=== PATIENT | male | born 1990 | race Caucasian/White ===

== ENCOUNTER 2020-08-14 22:59 | Emergency (ER) | payer SELFPAY ==
--- NOTE | 2020-08-14 23:46 | EDM.PDOC ---
ED HPI GENERAL MEDICAL PROBLEM - General Chief Complaint: Upper Extremity Injury/Pain Stated Complaint: ARM/SHOULDER PAIN Time Seen by Provider: 08/14/20 23:46 Source of Information: Reports: Patient History Limitations: Reports: No Limitations - History of Present Illness INITIAL COMMENTS - FREE TEXT/NARRATIVE: Patient is a 29-year-old male presents today for left shoulder pain. Pain states he was doing today and fell and since then he cannot be raise his left shoulder. Patient is to have a obvious left shoulder deformity. Patient has had and is hit or have any LOC or any other complaints of pain. Pain states the pain is made worse with moving his arm does not radiate is not made better with anything patient not take any medication for pain at home. left shoulder Pain Score (Numeric/FACES): 9 - Related Data Allergies Allergy/AdvReac Type Severity Reaction Status Date / Time No Known Allergies Allergy Verified 08/14/20 23:16 Home Meds: Home Meds . [No Known Home Meds] 08/14/20 [History] Past Medical History - Past Health History Medical/Surgical History: Denies Medical/Surgical History Musculoskeletal History: Reports: Fracture Social & Family History - Family History Family Medical History: No Pertinent Family History - Tobacco Use Packs/Tins Daily: 1 - Caffeine Use Caffeine Use: Reports: None - Recreational Drug Use Recreational Drug Use: No Review of Systems - Review of Systems Review Of Systems: See Below Constitutional: Reports: No Symptoms Eyes: Reports: No Symptoms Ears: Reports: No Symptoms Nose: Reports: No Symptoms Mouth/Throat: Reports: No Symptoms Respiratory: Reports: No Symptoms Cardiovascular: Reports: No Symptoms GI/Abdominal: Reports: No Symptoms Genitourinary: Reports: No Symptoms Musculoskeletal: Reports: Arm Pain Skin: Reports: No Symptoms Neurological: Reports: No Symptoms Psychiatric: Reports: No Symptoms ED EXAM, GENERAL - Physical Exam Exam: See Below Exam Limited By: No Limitations General Appearance: Alert, WD/WN, No Apparent Distress Head: Atraumatic, Normocephalic Respiratory/Chest: No Respiratory Distress, Lungs Clear Cardiovascular: Normal Peripheral Pulses, Regular Rate, Rhythm GI/Abdominal: Normal Bowel Sounds, Soft, Non-Tender Extremities: No: Normal Inspection (left shoulder dislocation) Neurological: Alert, Oriented ED TRAUMA EXTREMITY PROCEDURES - Joint Reduction Left Shoulder Sedation: Conscious Sedation Pre-Procedure NV Status: Normal Post-Procedure NV Status: Normal Technique: Other (External rotation) Number of Attempts: 1 Post-Reduction Imaging: Completely Reduced Joint Reduction Complications: Yes Course - Vital Signs Last Recorded V/S: Last Vital Signs Temp 98 F 08/14/20 23:13 Pulse 71 08/15/20 00:29 Resp 15 08/15/20 00:29 BP 118/78 08/14/20 23:13 Pulse Ox 98 08/15/20 00:29 - Orders/Labs/Meds Orders: Active Orders 24 hr Category Date Time Status Shoulder Comp Lt [CR] Stat Exams 08/14/20 23:45 Taken Shoulder Comp Lt [CR] Stat Exams 08/15/20 00:44 Ordered Meds: Medications Discontinued Medications Generic Name Dose Route Start Last Admin Trade Name George PRN Reason Stop Dose Admin Morphine Sulfate 4 mg 08/15/20 00:11 08/15/20 00:26 Morphine 4 Mg/Ml Syringe IVPUSH 08/15/20 00:12 4 mg ONETIME ONE Administration Morphine Sulfate Confirm 08/15/20 00:24 Morphine 4 Mg/Ml Syringe Administered 08/15/20 00:25 Dose 4 mg .ROUTE .STK-MED ONE Ondansetron HCl 4 mg 08/15/20 00:17 08/15/20 00:26 Ondansetron 4 Mg/2 Ml Sdv IVPUSH 08/15/20 00:18 4 mg ONETIME ONE Administration Ondansetron HCl Confirm 08/15/20 00:25 Ondansetron 4 Mg/2 Ml Sdv Administered 08/15/20 00:26 Dose 4 mg .ROUTE .STK-MED ONE Propofol Confirm 08/15/20 00:33 Propofol 200 Mg/20 Ml Sdv Administered 08/15/20 00:34 Dose 400 mg .ROUTE .STK-MED ONE - Re-Assessments/Exams Free Text/Narrative Re-Assessment/Exam: 08/15/20 01:24 Marie shoulder is reduced will be discharged home with a sling. What you are ordering Sling Why you are ordering it Protection and stabilization How it will benefit patient Stabilization How long is patient to use it 7 days Departure - Departure Time of Disposition: 01:25 Disposition: Home, Self-Care 01 Condition: Good Clinical Impression: Shoulder dislocation - Discharge Information *PRESCRIPTION DRUG MONITORING PROGRAM REVIEWED*: Not Applicable *COPY OF PRESCRIPTION DRUG MONITORING REPORT IN PATIENT WERNER: Not Applicable Instructions: Shoulder Dislocation, [id number] Referrals: PCP,None [Primary Care Provider] - Forms: ED Department Discharge Additional Instructions: The following information is given to patients seen in the emergency department who are being discharged to home. This information is to outline your options for follow-up care. We provide all patients seen in our emergency department with a follow-up referral. The need for follow-up, as well as the timing and circumstances, are variable depending upon the specifics of your emergency department visit. If you don't have a primary care physician on staff, we will provide you with a referral. We always advise you to contact your personal physician following an emergency department visit to inform them of the circumstance of the visit and for follow-up with them and/or the need for any referrals to a consulting specialist. The emergency department will also refer you to a specialist when appropriate. This referral assures that you have the opportunity for follow-up care with a specialist. All of these measure are taken in an effort to provide you with o ptimal care, which includes your follow-up. Under all circumstances we always encourage you to contact your private physician who remains a resource for coordinating your care. When calling for follow-up care, please make the office aware that this follow-up is from your recent emergency room visit. If for any reason you are refused follow-up, please contact the [facility] Emergency Department at and asked to speak to the emergency department charge nurse. Please follow up with your primary care physician. If you do not have a primary care physician, see below: [facility] [address], [address] [place] [address] You are seen today for shoulder dislocation. We were able to replace the shoulder back in place. The patient is a sling even keep a sling on for the next 2 days but otherwise start taking the sling off and range her shoulder. Above the number for orthopedic and follow-up follow-up as needed. If you have any other concerns complaints please follow-up with primary care physician or return to the ED. Sepsis Event Note (ED) - Evaluation Sepsis Screening Result: No Definite Risk - Focused Exam Vital Signs: Vital Signs Temp Pulse Resp BP Pulse Ox 08/15/20 00:29 71 15 98 08/14/20 23:13 98 F 77 16 118/78 95 - My Orders Last 24 Hours: My Active Orders 08/14/20 23:45 Shoulder Comp Lt [CR] Stat 08/15/20 00:44 Shoulder Comp Lt [CR] Stat - Assessment/Plan Last 24 Hours: My Active Orders 08/14/20 23:45 Shoulder Comp Lt [CR] Stat 08/15/20 00:44 Shoulder Comp Lt [CR] Stat Plan: Patient is a 29-year-old male presents today for IV deformity of left shoulder after falling while drinking. Tried to maneuver and replace shoulder blade patient is to his pain will call anesthesia and do consultation and reduce shoulder.
[2020-08-15] MEDS ORDERED: Morphine 4 MG/ML Syringe IVPUSH ONE (00:11)
[2020-08-15] MEDS ORDERED: Ondansetron 4 MG/2 ML SDV IVPUSH ONE (00:17)
[2020-08-15] MEDS ORDERED: Morphine 4 MG/ML Syringe ONE (00:24)
[2020-08-15] MEDS ORDERED: Ondansetron 4 MG/2 ML SDV ONE (00:25)
[2020-08-15] MEDS ORDERED: Propofol 200 MG/20 ML SDV ONE (00:33)
--- NOTE | 2020-08-15 00:57 | PCM.PRNOTE ---
- Free Text/Narrative Note: Anes Note I was called to ER to provide conscious sedation for this patient with a dislocated left shoulder. Patient has had several drinks of alcohol this evening. 0040 Patient received 100 mg propofol in small, slow divided doses. Light sedation was achieved. Shoulder was reduced with ease. Resp are easy and nonobstructed. Shannan well. Time with patient [id number] Dominic Zaidi CRNA
--- NOTE | 2020-08-15 01:12 | PCM.PREANE ---
Preanesthetic Assessment - Anesthesia/Transfusion/Family Hx Anesthesia History: No Prior Anesthesia Family History of Anesthesia Reaction: No - Physical Assessment NPO Status Date: 08/14/20 NPO Status Time: 23:00 Vital Signs: Last Vital Signs Temp 36.6 C 08/14/20 23:13 Pulse 71 08/15/20 00:29 Resp 15 08/15/20 00:29 BP 118/78 08/14/20 23:13 Pulse Ox 98 08/15/20 00:29 Height: 1.75 m Weight: 79.379 kg ASA Class: 1E - Allergies Allergies/Adverse Reactions: Allergies Allergy/AdvReac Type Severity Reaction Status Date / Time No Known Allergies Allergy Verified 08/14/20 23:16 - Acknowledgements Anesthesia Type Planned: MAC Pt an Appropriate Candidate for the Planned Anesthesia: Yes Alternatives and Risks of Anesthesia Discussed w Pt/Guardian: Yes Pt/Guardian Understands and Agrees with Anesthesia Plan: Yes PreAnesthesia Questionnaire - Past Health History Medical/Surgical History: Denies Medical/Surgical History Musculoskeletal History: Reports: Fracture - SUBSTANCE USE Tobacco Use Within Last Twelve Months: Cigarettes Recreational Drug Use History: No - HOME MEDS Home Medications: Home Meds . [No Known Home Meds] 08/14/20 [History] - CURRENT (IN HOUSE) MEDS Current Meds: Current Medications Discontinued Medications Morphine Sulfate (Morphine 4 Mg/Ml Syringe) 4 mg IVPUSH ONETIME ONE Stop: 08/15/20 00:12 Last Admin: 08/15/20 00:26 Dose: 4 mg Documented by: Morphine Sulfate (Morphine 4 Mg/Ml Syringe) Confirm Administered Dose 4 mg .ROUTE .STK-MED ONE Stop: 08/15/20 00:25 Ondansetron HCl (Ondansetron 4 Mg/2 Ml Sdv) 4 mg IVPUSH ONETIME ONE Stop: 08/15/20 00:18 Last Admin: 08/15/20 00:26 Dose: 4 mg Documented by: Ondansetron HCl (Ondansetron 4 Mg/2 Ml Sdv) Confirm Administered Dose 4 mg .ROUTE .STK-MED ONE Stop: 08/15/20 00:26 Propofol (Propofol 200 Mg/20 Ml Sdv) Confirm Administered Dose 400 mg .ROUTE .STK-MED ONE Stop: 08/15/20 00:34
--- NOTE | 2020-08-15 01:14 | PCM48HPAN ---
Post Anesthesia Note - EVALUATION WITHIN 48HRS OF ANESTHETIC Vital Signs in Normal Range: Yes Patient Participated in Evaluation: Yes Respiratory Function Stable: Yes Airway Patent: Yes Cardiovascular Function Stable: Yes Hydration Status Stable: Yes Pain Control Satisfactory: Yes Nausea and Vomiting Control Satisfactory: Yes Mental Status Recovered: Yes Vital Signs: Last Vital Signs Temp 36.6 C 08/14/20 23:13 Pulse 71 08/15/20 00:29 Resp 15 08/15/20 00:29 BP 118/78 08/14/20 23:13 Pulse Ox 98 08/15/20 00:29
--- NOTE | 2020-08-15 01:48 | CR ---
Indication: Dislocation Technique: Two views Comparison: None Findings: Two views left shoulder show anterior dislocation of the left humerus at the level of the glenohumeral joint. No definite fracture. Acromioclavicular joint unremarkable. Left lung clear. Dictated by Jozef Yap MD @ 08/15/2020 1:47:[address] Jozef Yap @ Aug 15 2020 1:47AM
--- NOTE | 2020-08-15 02:30 | CR ---
Clinical INDICATION: Postreduction. COMPARISON: 08/14/2020. Findings : Since previous examination, the anterior shoulder dislocation has been successfully reduced. There is a Hill-Sachs lesion of the humeral head. No other bone or joint abnormality is identified. Dictated by Donaldo Navarrete MD @ 08/15/2020 2:29:[address] Donaldo Navarrete @ Aug 15 2020 2:29AM
== END 2020-08-15 01:47 | disposition home or self-care (01) ==
LOC: MW.ED 22:59
DX: S43.005A Unspecified dislocation of left shoulder joint, initial encounter (principal); W18.39XA Other fall on same level, initial encounter
CPT/HCPCS: 23650; 73030; 96374; 96375; 99283; J2270; J2405; J2704

== ENCOUNTER 2020-08-21 17:00 | Emergency (ER) | payer SELFPAY ==
[2020-08-21] MEDS ORDERED: Morphine 4 MG/ML Syringe IVPUSH ONE (17:21)
[2020-08-21] MEDS ORDERED: Propofol 200 MG/20 ML SDV ONE (18:31)
--- NOTE | 2020-08-21 18:35 | CR ---
Indication: Dislocation. Technique: Two views of the left shoulder. Comparison: None Findings: The humeral head is located anterior and inferior in relation to the glenoid. No fracture is identified Impression: Anterior inferior dislocation of the humeral head in relation to the glenoid Dictated by Cathi Doyle MD @ 08/21/2020 6:34:[address] Cathi Doyle @ Aug 21 2020 6:34PM
--- NOTE | 2020-08-21 18:52 | PCM.PREANE ---
Preanesthetic Assessment - Anesthesia/Transfusion/Family Hx Anesthesia History: Prior Anesthesia Without Reaction Family History of Anesthesia Reaction: No - Physical Assessment NPO Status Date: 08/21/20 NPO Status Time: 14:00 Vital Signs: Last Vital Signs Temp 36.6 C 08/21/20 17:19 Pulse 66 08/21/20 18:49 Resp 18 08/21/20 18:49 BP 131/102 H 08/21/20 18:49 Pulse Ox 100 08/21/20 18:49 Height: 1.75 m Weight: 81.647 kg ASA Class: 1E - Allergies Allergies/Adverse Reactions: Allergies Allergy/AdvReac Type Severity Reaction Status Date / Time Sulfa (Sulfonamide Allergy Other Verified 08/21/20 17:22 Antibiotics) - Acknowledgements Anesthesia Type Planned: MAC Pt an Appropriate Candidate for the Planned Anesthesia: Yes Alternatives and Risks of Anesthesia Discussed w Pt/Guardian: Yes Pt/Guardian Understands and Agrees with Anesthesia Plan: Yes PreAnesthesia Questionnaire - Past Health History Medical/Surgical History: Denies Medical/Surgical History Musculoskeletal History: Reports: Fracture - Infectious Disease History Infectious Disease History: Reports: None - SUBSTANCE USE Tobacco Use Within Last Twelve Months: Cigarettes Recreational Drug Use History: No - HOME MEDS Home Medications: Home Meds . [No Known Home Meds] 08/14/20 [History] - CURRENT (IN HOUSE) MEDS Current Meds: Current Medications Discontinued Medications Morphine Sulfate (Morphine 4 Mg/Ml Syringe) 4 mg IVPUSH ONETIME ONE Stop: 08/21/20 17:22 Last Admin: 08/21/20 17:54 Dose: 4 mg Documented by: Propofol (Propofol 200 Mg/20 Ml Sdv) Confirm Administered Dose 200 mg .ROUTE .STK-MED ONE Stop: 08/21/20 18:32
--- NOTE | 2020-08-21 18:54 | PCM.PRNOTE ---
- Free Text/Narrative Note: Anes Note, Patient presents to ER with dislocated left shoulder. He did this while pulling on his shirt today. Light IV sedation with propofol was provided. 140 mg propofol was administered cautiously and in divided doses until speech was slightly slurred. Shoulder reduced wtih ease by Dr Romano. Shannan well. VS stable. Time with patient [id number]. Dominic Zaidi CONTROLS PROJECT ENGINEER
--- NOTE | 2020-08-21 19:15 | EDM.PDOC ---
ED HPI GENERAL MEDICAL PROBLEM - General Chief Complaint: Upper Extremity Injury/Pain Stated Complaint: POSSIBLY DISLOCATED SHOULDER Time Seen by Provider: 08/21/20 17:09 - History of Present Illness INITIAL COMMENTS - FREE TEXT/NARRATIVE: CHIEF COMPLAINT(S): Shoulder dislocation HISTORY OF PRESENT ILLNESS: This is a 29-year-old man with a past medical history of left shoulder dislocation who comes to the emergency department with a chief complaint of left shoulder dislocation. The patient states that he was just trying to take off his shirt when his left shoulder dislocated. He currently describes pain in his left shoulder as achy and throbbing rated 8 out of 10. He denies any numbness, tingling, weakness. He denies any injury. His last meal was this morning at 8 AM REVIEW OF SYSTEMS: Constitutional: Denies fever, chills. Eyes: Denies eye pain Ears, Nose, Mouth, & Throat: Denies earache Cardiovascular: Denies chest pain Respiratory: Denies shortness of breath Gastrointestinal: Denies Nausea, vomiting, diarrhea, hematochezia. Genitourinary: Denies hematuria Skin:Denies a rash MSK: Positive for left shoulder pain and dislocation Neurological: Denies blurred vision, numbness, tingling, weakness psychiatric: Denies depression PAST MEDICAL HISTORY: As per history of present illness and as reviewed below otherwise noncontributory. SURGICAL HISTORY: As per history of present illness and as reviewed below otherwise noncontributory. SOCIAL HISTORY: As per history of present illness and as reviewed below otherwise noncontributory. FAMILY HISTORY: As per history of present illness and as reviewed below otherwise noncontributory. EXAMINATION OF ORGAN SYSTEMS/BODY AREAS: Constitutional: Blood pressure was 181/119, heart rate 68, respirate 16 with an oxygen saturation 97% on room air. Temperature 36.6 General: Overall well-appearing man who is in no acute distress Psychiatric: Appropriate mood and affect. Eyes: No scleral icterus or conjunctival erythema ENMT: Moist mucous membranes. No pharyngeal erythema Cardiovascular: Regular, rate, and rhythm. No gallops, murmurs, or rubs. Bilateral upper extremity pulses symmetric and intact. No peripheral edema. No JVD. Respiratory: Lungs clear to auscultation bilaterally. No wheezes, rales, or rhonchi. Gastrointestinal: Soft, non-tender, non-distended. Normoactive bowel sounds Genitourinary: No suprapubic tenderness Musculoskeletal: Decreased range of motion of the left shoulder. There is asymmetry with the left shoulder inferior displaced. The patient is not able to touch his right shoulder. Skin: No lesions or abrasions. Neurological: Alert, GCS 15 distal sensation is intact MEDICAL DECISION MAKING AND COURSE IN THE ED WITH INTERPRETATION/REVIEW OF DIAGNOSTIC STUDIES: This is a 29-year-old man with a past medical history of with a past medical history of left shoulder dislocation who comes to the emergency department with what appears to be a left shoulder dislocation. At this time the patient has been n.p.o. since 8 AM this morning. He will be placed on n.p.o. status. We will provide the patient with morphine for pain relief and obtain a left shoulder x-ray. The radiological images were viewed by myself along with reading the report from the radiologist. Left shoulder x-ray reveals a inferiorly anterior dislocation of the humeral head in relation to the glenoid. I did discuss the results with the patient and we will utilize anesthesia in order for reduction. Patient was consented and placed in chart. Dislocation Reduction Procedure Note Performed by: Myself Consent: Verbal consent obtained. Risks and benefits: risks, benefits and alternatives were discussed Consent given by: Patient Patient understanding: Patient states understanding of the procedure being performed Patient consent: Patient understanding of the procedure matches consent given Patient identity confirmed: verbally with patient and arm band Time out: Immediately prior to procedure a "time out" was called to verify the correct patient, procedure, equipment, business support manager and site/side marked as required. Location details: Left shoulder Reduction Procedure: axial pull and closed manipulation of left shoulder disloc ation Results: Post reduction alignment improved, splint was placed Complication: Tolerated well without complication. <2sec RN PERIOPERATIVE. Tendons intact. Post-reduction Examination: Status post reduction the patient had distal palpable pulses with capillary refill less than 2 seconds and intact distal sensation. He had full range of motion of his fingertips. The radiological images were viewed by myself along with reading the report from the radiologist. Postreduction left shoulder x-ray reveals appropriate reduction with normal placement of the humeral head without any evidence of fracture After post reduction x-ray I did discuss follow-up with the patient given the recurrent nature of this dislocation. He is to follow-up with orthopedics within 5 to 7 days. He is to take Tylenol and Motrin for pain relief. He is to return for any new or worsening symptoms. He was amenable discharge and had no further questions DISPOSITION: Patient was discharged home in stable condition CONDITION: Fair PROCEDURES: Left shoulder dislocation reduction FINAL IMPRESSION(S)/DIAGNOSES: 1. Acute left shoulder dislocation DME: Left sling Indication: Shoulder dislocation, immobilization Benefit: Immobilization Duration: Until follow-up with orthopedics Price Romano M.D. left shoulder Pain Score (Numeric/FACES): 8 - Related Data Allergies Allergy/AdvReac Type Severity Reaction Status Date / Time Sulfa (Sulfonamide Allergy Other Verified 08/21/20 17:22 Antibiotics) Home Meds: Home Meds . [No Known Home Meds] 08/14/20 [History] Past Medical History - Past Health History Medical/Surgical History: Denies Medical/Surgical History Musculoskeletal History: Reports: Fracture - Infectious Disease History Infectious Disease History: Reports: None Social & Family History - Family History Family Medical History: No Pertinent Family History - Tobacco Use Packs/Tins Daily: 0.5 - Caffeine Use Caffeine Use: Reports: None - Recreational Drug Use Recreational Drug Use: No ED ROS GENERAL - Review of Systems Review Of Systems: See Below ED EXAM, GENERAL - Physical Exam Exam: See Below Course - Vital Signs Last Recorded V/S: Last Vital Signs Temp 36.2 C 08/21/20 19:40 Pulse 64 08/21/20 19:40 Resp 18 08/21/20 19:40 BP 148/108 H 08/21/20 19:40 Pulse Ox 96 08/21/20 19:40 - Orders/Labs/Meds Orders: Active Orders 24 hr Category Date Time Status DME for Discharge [COMM] Stat Oth 08/21/20 18:08 Ordered Meds: Medications Discontinued Medications Generic Name Dose Route Start Last Admin Trade Name Freq PRN Reason Stop Dose Admin Morphine Sulfate 4 mg 08/21/20 17:21 08/21/20 17:54 Morphine 4 Mg/Ml Syringe IVPUSH 08/21/20 17:22 4 mg ONETIME ONE Administration Propofol Confirm 08/21/20 18:31 Propofol 200 Mg/20 Ml Sdv Administered 08/21/20 18:32 Dose 200 mg .ROUTE .STK-MED ONE Departure - Departure Time of Disposition: 19:26 Disposition: Home, Self-Care 01 Condition: Fair Clinical Impression: Shoulder dislocation, recurrent - Discharge Information *PRESCRIPTION DRUG MONITORING PROGRAM REVIEWED*: No *COPY OF PRESCRIPTION DRUG MONITORING REPORT IN PATIENT WERNER: No Instructions: Shoulder Dislocation, [id number] Referrals: PCP,None [Primary Care Provider] - Forms: ED Department Discharge Additional Instructions: You evaluate today on an emergent basis. At this time he did have a recurrent left shoulder dislocation. I would keep your left shoulder in a sling and follow-up with orthopedics within 5 to 7 days for further evaluation. Please use Tylenol and Motrin for pain relief. If you have any new or worsening symptoms such as redislocation, cold extremity, numbness or weakness with grasp please return to the emergency department. [facility] - [facility] [address], [address] [place] [address] The patient is informed of any results of their evaluation and diagnostic workup and all questions are answered. They are given discharge instructions and return precautions. The patient is stable for discharge. The patient states they understand and agree with the plan and that they will return if their symptoms get worse or if they have any new concerns. The following information is given to patients seen in the emergency department who are being discharged to home. This information is to outline your options for follow-up care. We provide all patients seen in our emergency department with a follow-up referral. The need for follow-up, as well as the timing and circumstances, are variable depending upon the specifics of your emergency department visit. If you don't have a primary care physician on staff, we will provide you with a referral. We always advise you to contact your personal physician following an emergency department visit to inform them of the circumstance of the visit and for follow-up with them and/or the need for any referrals to a consulting specialist. The emergency department will also refer you to a specialist when appropriate. This referral assures that you have the opportunity for follow-up care with a specialist. All of these measure are taken in an effort to provide you with optimal care, which includes your follow-up. Under all circumstances we always encourage you to contact your private physician who remains a resource for coordinating your care. When calling for follow-up care, please make the office aware that this follow-up is from your recent emergency room visit. If for any reason you are refused follow-up, please contact the [facility] Emergency Department at and asked to speak to the emergency department charge nurse. Sepsis Event Note (ED) - Evaluation Sepsis Screening Result: No Definite Risk - Focused Exam Vital Signs: Vital Signs Temp Pulse Resp BP Pulse Ox 08/21/20 19:40 36.2 C 64 18 148/108 H 96 - My Orders Last 24 Hours: My Active Orders 08/21/20 18:08 DME for Discharge [COMM] Stat - Assessment/Plan Last 24 Hours: My Active Orders 08/21/20 18:08 DME for Discharge [COMM] Stat
--- NOTE | 2020-08-21 19:25 | CR ---
Indication: Post reduction shoulder dislocation Technique: Two views left shoulder Comparison: Same date at 5:49 p.m. Findings/Impression: : Interval reduction of left shoulder dislocation. No acute fracture identified. Joint spaces are normal. Dictated by Lida Jennings MD @ 08/21/2020 7:24:[address] Lida Jennings @ Aug 21 2020 7:24PM
== END 2020-08-21 19:40 | disposition home or self-care (01) ==
LOC: MW.ED 17:00
DX: S43.015A Anterior dislocation of left humerus, initial encounter (principal); S43.035A Inferior dislocation of left humerus, initial encounter; X58.XXXA Exposure to other specified factors, initial encounter
CPT/HCPCS: 23650; 73030; 96374; 99283; J2270; J2704